=== PATIENT | female | born 1955 | race Caucasian/White ===

== ENCOUNTER → 2019-10-02 | Outpatient (CLI) | payer OTHER ==
[~2019-10-02] MED LIST: ASPIRIN81 M2 PO; AVELOX400 MG PO; BENTYL10 MG PO; FUROSEMIDE 20 M20 M1 PO; K-DUR10 MEQ PO; PREDNISONE50 MG PO; SINGULAIR 10 MG10 M1 PO; SYNTHROID150 MCG PO
== END ==
LOC: M.LAB 07:25
PROVIDERS: ATTEND Internal Medicine Gastroenterology
DX: Z01.812 Encounter for preprocedural laboratory examination (principal); Z11.59 Encounter for screening for other viral diseases; Z86.010 Personal history of colon polyps; Z83.71 Family history of colonic polyps